=== PATIENT | female | born 1955 | race Caucasian/White ===

== ENCOUNTER 2021-06-13 12:23 | Emergency (ER) | payer MEDICARE ==
[2021-06-13 12:31] VITALS: TEMP 97.7
--- NOTE | 2021-06-13 12:55 | ED ---
Neuro HPI - General Chief Complaint: Neuro Symptoms/Deficit Stated Complaint: speech stuttering Time Seen by Provider: 06/13/21 12:38 Source: patient Mode of arrival: wheelchair Limitations: no limitations - History of Present Illness Is the patient presenting with stroke symptoms?: Yes Last Known Well Date: 06/12/21 Initial Comments: Patient presents to the [facility] with complaint of trouble speaking. Yesterday she had paresthesias in the left upper extremity as well as left facial droop. She thought it would go away. She went to bed. She woke up. She still has symptoms of left facial droop and also trouble with word finding and speaking. She has no weakness in the arms or legs. She has no chest or belly pain. She has no back pain. She has no shortness of breath. She has no nausea or vomiting or diaphoresis. She is able to walk. She has had a headache for couple days, but it is not the worse headache of her life and came on gradually over time. She has taken no medicine for the symptoms. She wasn't doing any specifically when any the symptoms began. - Related Data Home Medications: Home Medications Medication Instructions Recorded Confirmed Ascorbic Acid/Elderberry Fruit 1 tab PO DAILY 06/13/21 06/13/21 [Elderberry-Vit C 50-100 mg Chw] Cholecalciferol [Vitamin D3 (25 25 mcg PO DAILY 06/13/21 06/13/21 Mcg = 1000 Iu)] Magnesium 200 mg PO DAILY 06/13/21 06/13/21 Multivitamins, Thera [Multivitamin 1 tab PO DAILY 06/13/21 06/13/21 (formulary)] Vitamin B Complex 1 cap PO DAILY 06/13/21 06/13/21 Allergies/Adverse Reactions: Allergies Allergy/AdvReac Type Severity Reaction Status Date / Time No Known Allergies Allergy Verified 06/13/21 13:19 Review of Systems ROS Statement: Those systems with pertinent positive or pertinent negative responses have been documented in the HPI. ROS Other: All systems not noted in ROS Statement are negative. General Exam Limitations: no limitations General appearance: alert, in no apparent distress Head exam: Present: atraumatic, normocephalic, normal inspection Eye exam: Present: normal appearance, PERRL, EOMI. Absent: scleral icterus, conjunctival injection, periorbital swelling ENT exam: Present: normal exam, mucous membranes moist Neck exam: Present: normal inspection. Absent: tenderness, meningismus, lymphadenopathy Respiratory exam: Present: normal lung sounds bilaterally. Absent: respiratory distress, wheezes, rales, rhonchi, stridor Cardiovascular Exam: Present: regular rate, normal rhythm, normal heart sounds. Absent: systolic murmur, diastolic murmur, rubs, gallop, clicks GI/Abdominal exam: Present: soft, normal bowel sounds. Absent: distended, tenderness, guarding, rebound, rigid Extremities exam: Present: normal inspection, full ROM, normal capillary refill. Absent: tenderness, pedal edema, joint swelling, calf tenderness Back exam: Present: normal inspection Neurological exam: Present: alert, oriented X3, CN II-XII intact Psychiatric exam: Present: normal affect, normal mood Skin exam: Present: warm, dry, intact, normal color. Absent: rash Stroke MDM - Lab Data Result diagrams: 06/13/21 12:56 06/13/21 12:56 Lab Results 06/13/21 06/13/21 06/13/21 Range/Units 12:56 12:56 12:56 WBC 5.1 (3.8-10.6) k/uL RBC 4.75 (3.80-5.40) m/uL Hgb 14.1 (11.4-16.0) gm/dL Hct 44.3 (34.0-46.0) % MCV 93.3 (80.0-100.0) fL MCH 29.8 (25.0-35.0) pg MCHC 31.9 (31.0-37.0) g/dL RDW 13.7 (11.5-15.5) % Plt Count 280 (150-450) k/uL MPV 7.7 Neutrophils % 58 % Lymphocytes % 30 % Monocytes % 6 % Eosinophils % 4 % Basophils % 0 % Neutrophils # 3.0 (1.3-7.7) k/uL Lymphocytes # 1.5 (1.0-4.8) k/uL Monocytes # 0.3 (0-1.0) k/uL Eosinophils # 0.2 (0-0.7) k/uL Basophils # 0.0 (0-0.2) k/uL PT 10.0 (9.0-12.0) sec INR 0.9 (<1.2) APTT 25.5 (22.0-30.0) sec Sodium 140 (137-145) mmol/L Potassium 4.4 (3.5-5.1) mmol/L Chloride 108 H (98-107) mmol/L Carbon Dioxide 23 (22-30) mmol/L Anion Gap 9 mmol/L BUN 13 (7-17) mg/dL Creatinine 0.65 (0.52-1.04) mg/dL Est GFR (CKD-EPI)AfAm >90 (>60 ml/min/1.73 sqM) Est GFR (CKD-EPI)NonAf >90 (>60 ml/min/1.73 sqM) Glucose 108 H (74-99) mg/dL Calcium 9.5 (8.4-10.2) mg/dL Total Bilirubin 0.8 (0.2-1.3) mg/dL AST 27 (14-36) U/L ALT 23 (4-34) U/L Alkaline Phosphatase 76 (38-126) U/L Troponin I (0.000-0.034) ng/mL Total Protein 8.1 (6.3-8.2) g/dL Albumin 4.5 (3.5-5.0) g/dL 06/13/21 Range/Units 12:56 WBC (3.8-10.6) k/uL RBC (3.80-5.40) m/uL Hgb (11.4-16.0) gm/dL Hct (34.0-46.0) % MCV (80.0-100.0) fL MCH (25.0-35.0) pg MCHC (31.0-37.0) g/dL RDW (11.5-15.5) % Plt Count (150-450) k/uL MPV Neutrophils % % Lymphocytes % % Monocytes % % Eosinophils % % Basophils % % Neutrophils # (1.3-7.7) k/uL Lymphocytes # (1.0-4.8) k/uL Monocytes # (0-1.0) k/uL Eosinophils # (0-0.7) k/uL Basophils # (0-0.2) k/uL PT (9.0-12.0) sec INR (<1.2) APTT (22.0-30.0) sec Sodium (137-145) mmol/L Potassium (3.5-5.1) mmol/L Chloride (98-107) mmol/L Carbon Dioxide (22-30) mmol/L Anion Gap mmol/L BUN (7-17) mg/dL Creatinine (0.52-1.04) mg/dL Est GFR (CKD-EPI)AfAm (>60 ml/min/1.73 sqM) Est GFR (CKD-EPI)NonAf (>60 ml/min/1.73 sqM) Glucose (74-99) mg/dL Calcium (8.4-10.2) mg/dL Total Bilirubin (0.2-1.3) mg/dL AST (14-36) U/L ALT (4-34) U/L Alkaline Phosphatase (38-126) U/L Troponin I <0.012 (0.000-0.034) ng/mL Total Protein (6.3-8.2) g/dL Albumin (3.5-5.0) g/dL - Medical Decision Making Patient's workup does not reveal any evidence of any acute emergency. I reevaluated the patient. She is symptom-free. I am recommending to the patient that she be admitted to the hospital for MRI and neurology consultation as I am concerned she had a TIA and is a high risk for stroke. Patient is adamantly refusing to be admitted to the hospital. She is alert and oriented 4, capable of making her own medical decisions. She is in the care of family. I instructed her to follow-up with her primary care physician as soon as possible and to return to the emergency department if her symptoms return or worsen or for any other problems or complaints. Past Medical History Past Medical History: No Reported History History of Any Multi-Drug Resistant Organisms: None Reported Past Surgical History: No Surgical Hx Reported Past Psychological History: No Psychological Hx Reported Smoking Status: Never smoker Past Alcohol Use History: Occasional Past Drug Use History: None Reported Course Vital Signs 06/13/21 06/13/21 12:27 15:08 Temperature 97.7 F Pulse Rate 77 73 Respiratory 20 18 Rate Blood Pressure 126/67 108/69 O2 Sat by Pulse 100 Oximetry Disposition Clinical Impression: Transient cerebral ischemia Disposition: Left Against Medical Advice Condition: Good Is patient prescribed a controlled substance at d/c from ED?: No Referrals: None,Stated [Primary Care Provider] - 1-2 days Tre Kessler MD [STAFF PHYSICIAN] - 1-2 days Gregorio Clayton MD [STAFF PHYSICIAN] - 1-2 days
[2021-06-13 13:23] LABS: Basophils % (A) 0 %; Eosinophils # (A) 0.2 k/uL (0-0.7); Eosinophils % (A) 4 %; HCT 44.3 % (34.0-46.0); HGB 14.1 gm/dL (11.4-16.0); Lymphocytes # (A) 1.5 k/uL (1.0-4.8); Lymphocytes % (A) 30 %; MCH 29.8 pg (25.0-35.0); MCHC 31.9 g/dL (31.0-37.0); MCV 93.3 fL (80.0-100.0); Mean Platelet Volume 7.7; Monocytes # (A) 0.3 k/uL (0-1.0); Monocytes % (A) 6 %; Neutrophils % (A) 58 %; Platelet Count 280 k/uL (150-450); RBC 4.75 m/uL (3.80-5.40); RDW 13.7 % (11.5-15.5); WBC 5.1 k/uL (3.8-10.6)
[2021-06-13 13:24] LABS: ALT 23 U/L (4-34); AST 27 U/L (14-36); African American GFR (CKD) >90 (>60 ml/min/1.73 sqM); Albumin 4.5 g/dL (3.5-5.0); Alkaline Phosphatase 76 U/L (38-126); Anion Gap 9 mmol/L; Blood Urea Nitrogen 13 mg/dL (7-17); Calcium 9.5 mg/dL (8.4-10.2); Carbon Dioxide 23 mmol/L (22-30); Chloride 108 mmol/L (98-107); Glucose 108 mg/dL (74-99); Non-African American GFR(CKD) >90 (>60 ml/min/1.73 sqM); Potassium 4.4 mmol/L (3.5-5.1); Sodium 140 mmol/L (137-145); Total Bilirubin 0.8 mg/dL (0.2-1.3); Total Protein 8.1 g/dL (6.3-8.2)
[2021-06-13 13:47] LABS: INR 0.9 (<1.2); Partial Thromboplastin Time 25.5 sec (22.0-30.0)
--- NOTE | 2021-06-13 13:51 | XR ---
EXAMINATION TYPE: XR chest 1V portable DATE OF EXAM: 06/13/2021 COMPARISON: NONE HISTORY: Altered mental status and weakness. TECHNIQUE: Single AP portable frontal semiupright view of the chest is obtained. FINDINGS: There is no focal air space opacity, pleural effusion, or pneumothorax seen. The cardiac silhouette size is within normal limits. The osseous structures are intact. Overlying EKG leads are present. IMPRESSION: No acute process.
--- NOTE | 2021-06-13 14:02 | CT ---
EXAMINATION TYPE: CT brain wo con DATE OF EXAM: 06/13/2021 HISTORY: difficulty with speech CT DLP: 981.8 mGycm. Automated Exposure Control for Dose Reduction was Utilized. TECHNIQUE: CT scan of the head is performed without contrast. COMPARISON: None. FINDINGS: There is no acute intracranial hemorrhage or midline shift identified. There is mild to m oderate diffuse ventricular and sulcal prominence with sulcal prominence greatest over the bilateral frontal lobes. Perez-white matter differentiation is maintained. The globes are intact bilaterally. M ild to moderate mucosal thickening in visualized portion of both maxillary sinuses left greater than right. Mild to moderate mucosal thickening in the ethmoid sinuses bilaterally. Mild mucosal thickenin g bilateral sphenoid sinuses. Persist anterior metopic suture which is normal variant. IMPRESSION: No acute intracranial hemorrhage or midline shift. There is mild to moderate diffuse ce rebral atrophy greatest over bilateral frontal lobes and mild to moderate chronic paranasal sinus dis ease noted.
--- NOTE | 2021-06-13 14:11 | CT ---
EXAMINATION TYPE: CT angio head neck DATE OF EXAM: 06/13/2021 HISTORY: difficulty with speech, acute onset neuro deficit. COMPARISON: None CT DLP: 535.1 mGycm. Automated Exposure Control for Dose Reduction was Utilized. TECHNIQUE: CTA scan of the head and neck are performed with IV Contrast, patient injected with 65 mL of Isovue 370, axial images are obtained, coronal and sagittal reformatted images are reviewed. 3D r econstructed images are created on an independent workstation and reviewed. FINDINGS: Carotid/Vascular Structures: There is bovine type aortic arch which is normal variant. No significant plaque or stenosis at the level of the arch. Tortuous course to the left common carotid artery is se en at its origin. Minimal peripheral calcified plaque left carotid bulb. No significant stenosis in t he common or internal carotid arteries bilaterally. Patent external carotid arteries bilaterally with out significant plaque or stenosis. There are codominant vertebral arteries patent to the basilar junction. No significant focal stenosi s or aneurysm in the posterior circulation. Patent left posterior communicating artery is identified. There is hypoplastic right posterior communicating artery. Images of the anterior circulation show p atent small caliber anterior communicating artery. There is no significant focal stenosis or aneurysm in the anterior circulation. Other: There are prominent borderline enlarged lymph nodes throughout the neck bilaterally but the pa rapharyngeal fat spaces are maintained. Slight scoliotic curvature on coronal images. Loss of normal cervical curvature on sagittal images. M [id number] multilevel disc space narrowing and spurring C3-C4 through the C6-C7 levels. IMPRESSION: 1. No significant stenosis in common or internal carotid arteries bilaterally. 2. No significant stenosis or aneurysm at the level of the [place]. NASCET criteria was used in interpretation of this exam?
[2021-06-13 15:09] VITALS: BP 108/69; PULSE 73; RESP 18
== END 2021-06-13 16:12 | disposition left against medical advice (07) ==
LOC: EC 12:23
DX: G45.9 Transient cerebral ischemic attack, unspecified (principal); Z72.89 Other problems related to lifestyle
CPT/HCPCS: 36415; 80053; 84484; 85025; 85610; 85730; 71045; 70496; 70450; 70498; 99284; Q9967

== ENCOUNTER → 2024-03-24 | Outpatient (CLI) | payer MEDICARE ==
[2024-03-24 09:52] VITALS: BP 99/69; PULSE 88; RESP 17; TEMP 98.9
--- NOTE | 2024-03-24 10:47 | P.GSCN ---
History of Present Illness Consult date: 03/24/24 Reason for Consult: Right breast invasive ductal cancer Requesting physician: Serg Leahy History of present illness: Hui is a 68 year old female seen in consultation for Dr. Leahy regarding a biopsy proven right breast invasive ductal cancer. She had a bilateral mammogram on 09-16-23, which showed a lesion in the right breast. No lesions in the left breast. This led to a right breast ultrasound and biopsy. A 1.8 by 1.9 cm lesion was seen at 10:00 in the right breast. Biopsy showed a G3 ER+TX+HER2+ invasive ductal cancer. She has been able to feel the spot in her right breast for about three weeks. She has not had any trauma in her breast. She is not complaining of any nipple discharge or skin changes. She has not had any surgery on her breast. She has not had any infection in her breast. Is taking nutrients now and had an IV infusion ([facility] Cocktail) at the [facility] earlier this week on Wednesday Caffeine: 2 cups/day tea nicotine: none chocolate: occasional BCP: none hormone: none Family History: no cancer Hormonal History: menarche: 14 , breast fed: yes, age at first : 25 menopause: 54 Surgical History: RK surgery on her eyes 30 years ago Medical History: minni stroke Social History: nicotine: none alcohol: occasional drugs: none Review of Systems - Constitutional Denies fever, Denies weight loss - EENT Eyes: bilateral as per HPI Ears: deny: decreased hearing Ears, nose, mouth and throat: Denies dysphagia - Breasts bilateral: as per HPI - Cardiovascular Denies chest pain, Denies shortness of breath - Respiratory Denies cough, Denies 7 - Gastrointestinal Reports as per HPI - Genitourinary Genitourinary: Denies dysuria, Denies hematuria Menstruation: Reports postmenopausal - Musculoskeletal Reports as per HPI - Integumentary Denies rash, Denies unusual bruising - Neurological Neurologic Comment(s): minni stroke speach a little slow Denies headaches, Denies syncope - Psychiatric Reports as per HPI - Endocrine Reports weight change - Hematologic/Lymphatic Hematologic/Lymphatic Comment(s): aspirin low dose - Allergic/Immunologic Reports as per HPI Past Medical History Past Medical History: No Reported History History of Any Multi-Drug Resistant Organisms: None Reported Past Surgical History: No Surgical Hx Reported Past Psychological History: No Psychological Hx Reported Smoking Status: Never smoker Past Alcohol Use History: Occasional Past Drug Use History: None Reported Medications and Allergies Home Medications Medication Instructions Recorded Confirmed Type Ascorbic Acid/Elderberry Fruit 1 tab PO DAILY 06/13/21 03/24/24 History [Elderberry-Vit C 50-100 mg Chw] Cholecalciferol [Vitamin D3 (25 25 mcg PO DAILY 06/13/21 03/24/24 History Mcg = 1000 Iu)] Magnesium 200 mg PO DAILY 06/13/21 03/24/24 History Multivitamins, Thera [Multivitamin 1 tab PO DAILY 06/13/21 03/24/24 History (formulary)] Vitamin B Complex 1 cap PO DAILY 06/13/21 03/24/24 History Allergies Allergy/AdvReac Type Severity Reaction Status Date / Time No Known Allergies Allergy Verified 03/24/24 09:50 Surgical - Exam Vital Signs Temp Pulse Resp BP Pulse Ox 98.9 F 88 17 99/69 96 03/24/24 09:50 03/24/24 09:50 03/24/24 09:50 03/24/24 09:50 03/24/24 09:50 - General moderate distress - Eyes normal ocular movement - Neck trachea midline - Respiratory normal expansion, normal respiratory effort - Cardiovascular Rhythm: regular Heart Sounds: normal: S1, S2 - Abdomen Abdomen: soft, non tender, no guarding, no rigid, no rebound - Integumentary normal turgor - Neurologic no disoriented, no combative - Musculoskeletal normal gait - Psychiatric oriented to time, oriented to person, oriented to place, speech is normal, memory intact Breast Exam: BRA: 38C Inspection: Bilateral grade 2 ptosis Palpation: Right breast: Upper outer quadrant approximately 2 x 2 cm fullness no other dominant masses or nodules of concern, biopsy site clean and dry, no infection or hematoma Right axilla: No adenopathy of concern Left breast: Multi positional exam no dominant masses or nodules of concern Left axilla: No adenopathy of concern Results Exam and ultrasound personally reviewed and discussed with Dr. Ferrera Assessment and Plan Assessment: Impression: Right breast T1 N0 M0 ER positive TX positive HER2 positive G3 invasive ductal carcinoma in the upper outer quadrant region Patient using natural supplements at this time Plan: Presentation of case at tumor board CC: Dr. Leahy
== END ==
LOC: WWCWWP 09:40
PROVIDERS: ATTEND Surgery
DX: C50.411 Malignant neoplasm of upper-outer quadrant of right female breast (principal); Z17.0 Estrogen receptor positive status [ER+]

== ENCOUNTER → 2024-03-30 | Outpatient (CLI) | payer MEDICARE ==
--- NOTE | 2024-03-31 12:13 | CA ---
Transthoracic Echo Report Name: Hui Rivera Age: 68 Gender: F : 1955 Exam Date: 03/30/2024 18:07 Exam Location: [facility] Ht (in): 63 Wt (lb): 188 Ordering Physician: Margarita Sarah MD Attending/Referring Phys: Rose Johnson MD Chemical Radiation Technician Susan Ramirez RDCS Procedure CPT: Indications: Z01.818 Chemo Cardiac Hx: Technical Quality: Good Contrast 1: Total Dose (mL): Contrast 2: Total Dose (mL): MEASUREMENTS (Male / Female) Normal Values 2D ECHO LV Diastolic Diameter PLAX 4.2 cm 4.2 - 5.9 / 3.9 - 5.3 cm LV Systolic Diameter PLAX 3.0 cm IVS Diastolic Thickness 1.0 cm 0.6 - 1.0 / 0.6 - 0.9 cm LVPW Diastolic Thickness 1.0 cm 0.6 - 1.0 / 0.6 - 0.9 cm LV Relative Wall Thickness 0.5 RV Internal Dim ED PLAX 3.0 cm LA Systolic Diameter LX 3.2 cm 3.0 - 4.0 / 2.7 - 3.8 cm LV Diastolic Volume MOD 4C 88.8 cm??? LV Systolic Volume MOD 4C 35.1 cm??? LV Ejection Fraction MOD 4C 60.4 % LV Cardiac Index MOD 4C 2245.0 cm???/min???m??? LV Diastolic Length 4C 8.1 cm LV Systolic Length 4C 6.0 cm LV Diastolic Volume MOD 2C 49.1 cm??? LV Systolic Volume MOD 2C 18.3 cm??? LV Ejection Fraction MOD 2C 62.7 % LV Cardiac Index MOD 2C 1288.7 cm???/min???m??? LV Diastolic Length 2C 7.5 cm LV Systolic Length 2C 5.9 cm M-MODE Aortic Root Diameter MM 3.2 cm AV Cusp Separation MM 2.0 cm DOPPLER AV Peak Velocity 173.4 cm/s AV Peak Gradient 12.0 mmHg Mitral E Point Velocity 64.8 cm/s Mitral A Point Velocity 82.1 cm/s Mitral E to A Ratio 0.8 MV Deceleration Time 317.5 ms MV E' Velocity 7.7 cm/s Mitral E to MV E' Ratio 8.4 TR Peak Velocity 233.1 cm/s TR Peak Gradient 21.7 mmHg Right Ventricular Systolic Press 31.7 mmHg FINDINGS Left Ventricle Left ventricular ejection fraction is estimated at 55-60 %. Left ventricular cavity size normal. Mildly increased posterior wall thickness. Normal left ventricular wall motion. Right Ventricle Normal right ventricular size and function. Right ventricular systolic pressure within normal limits. Right Atrium Normal right atrial size. No right atrial thrombus or mass seen. Left Atrium Normal left atrial size. No left atrial thrombus or mass present. Mitral Valve Structurally normal mitral valve. No mitral stenosis, regurgitation or prolapse. Aortic Valve Trileaflet aortic valve. Trace aortic regurgitation. Tricuspid Valve Structurally normal tricuspid valve. Mild tricuspid regurgitation. Pulmonic Valve Structurally normal pulmonic valve. Trace pulmonic regurgitation. Pericardium No pericardial or pleural effusion. Aorta Normal size aortic root and proximal ascending aorta. CONCLUSIONS Normal LV systolic function with an ejection fraction of 55-60% Previewed by: Dr. Mau Ceballos MD (Electronically Signed) Final Date: 31 March 2024 12:12
== END | disposition home or self-care (01) ==
LOC: RADECHMAIN 17:56
PROVIDERS: ATTEND Internal Medicine
DX: Z01.818 Encounter for other preprocedural examination (principal); G45.9 Transient cerebral ischemic attack, unspecified; C50.919 Malignant neoplasm of unspecified site of unspecified female breast; I35.1 Nonrheumatic aortic (valve) insufficiency; I07.1 Rheumatic tricuspid insufficiency; I37.1 Nonrheumatic pulmonary valve insufficiency
CPT/HCPCS: 93306

== ENCOUNTER → 2024-04-06 | Outpatient (CLI) | payer MEDICARE ==
--- NOTE | 2024-04-10 09:21 | PE ---
EXAMINATION TYPE: PET CT fusion skull to thigh DATE OF EXAM: 04/06/2024 CLINICAL INDICATION:Female, 68 years old with history of right breast ca; TECHNIQUE: Following the intravenous administration of 11.05 mCi of F-18 FDG, whole body images are performed from the skull base to the midthigh. Images are reviewed on the computer in the coronal, axial, and sagittal planes. Reconstructed rotating images are created on independent workstation and reviewed on the computer. A non-contrast CT is performed in conjunction with the PET scan. Glucose level 114 mg/dL CT DLP: 760 mGycm, Automated exposure control for dose reduction was used. COMPARISON: CT None, PET/CT None, MRI: None FINDINGS: Mediastinal SUV mean is 2.4. Hepatic parenchyma SUV mean is 3.1. SKULL BASE AND NECK: No suspicious radiotracer activity. CHEST, MEDIASTINUM, AND HILAR REGION: Right breast mass measuring 23 x 21 mm Max SUV 19.7. ABDOMEN AND PELVIS: Enlarged lymph nodes are seen in the pelvis including: * Right external iliac measuring 15 mm Max SUV 12.4. * Right common iliac max SUV 6.8. * Left common iliac lymph node max SUV 2.4 Left adrenal nodule measuring 15 mm Max SUV 4.1. Structure thought to represent the uterus demonstrates increased metabolic activity centrally somewha t diffusely thought to be separate from the urinary bladder max SUV 30.5 MUSCULOSKELETAL STRUCTURES: Low level diffuse uptake throughout the osseous structures. OTHER CT: * Carotid bifurcation atherosclerosis. * Intramuscular lipoma within the supra/infraspinatus. * Cholelithiasis. * Colonic diverticulosis. * Bladder diverticula present. IMPRESSION: 1. Right breast mass without evidence for metastatic disease within the thorax. Diffuse uptake withi n the osseous structures felt to be physiologic. This limits evaluation of the 4 osseous metastatic d isease. Please see below for findings regarding the endometrium. 2. FDG avid uterus with multiple FDG avid lymph nodes in the pelvis and extending up into the retrop eritoneum. Findings concerning for endometrial carcinoma with metastatic disease. Further evaluation of the pelvis/uterus is recommended. Findings communicated to Dr. Margarita Sarah MD on 04/10/2024 9:[address] Da Ram. [facility], , 04/10/2024 9:19 AM
== END | disposition home or self-care (01) ==
LOC: RADPETMAIN 08:05
PROVIDERS: ATTEND Internal Medicine
DX: C50.111 Malignant neoplasm of central portion of right female breast (principal); N63.10 Unspecified lump in the right breast, unspecified quadrant
CPT/HCPCS: 78815; A9552

== ENCOUNTER → 2024-04-11 | Outpatient (CLI) | payer MEDICARE ==
[2024-04-12 03:07] LABS: BUN/Creat Ratio 14.12 Ratio (12.00-20.00); Blood Urea Nitrogen 11.3 mg/dL (9.0-27.0); Calcium 9.3 mg/dL (8.7-10.3); Carbon Dioxide 23.6 mmol/L (21.6-31.8); Chloride 104 mmol/L (96-109); Glucose 106 mg/dL (70-110); Potassium 4.5 mmol/L (3.5-5.5); Sodium 139 mmol/L (135-145)
== END | disposition home or self-care (01) ==
LOC: LABWHC1 16:38
PROVIDERS: ATTEND Obstetrics & Gynecology
DX: C54.1 Malignant neoplasm of endometrium (principal)
CPT/HCPCS: 36415; 80048